=== PATIENT | female | born 1940 | race Two or more races ===

== ENCOUNTER 2022-10-23 09:15 | Inpatient (IN) | payer OTHER ==
[~2022-10-23] VITALS: Ht 157.5 cm; Wt 80.7 kg
[2022-10-23] MEDS ORDERED: ROSUVAST PO (10:31)
[2022-10-23] MEDS ORDERED: AMLODIP PO (10:31)
[2022-10-28] MEDS ORDERED: INTESTINEX680 M1 PO (13:24)
[2022-10-28] MEDS ORDERED: NEURONTIN300 MG PO (13:24)
== END 2022-10-28 15:25 | disposition home or self-care (01) | DRG 330 ==
LOC: O/R 10-25 07:45 → SURH 10-25 09:15 → SURG 10-25 15:27 → SURH 10-25 15:30
PROVIDERS: ADMIT Surgery; ATTEND Surgery
PROC: 07BB4ZZ Excision of Mesenteric Lymphatic, Percutaneous Endoscopic Approach (ICD-10-PCS; 2022-10-25)
PROC: 0DTF4ZZ Resection of Right Large Intestine, Percutaneous Endoscopic Approach (ICD-10-PCS; principal; 2022-10-25 15:30)
DX: C18.0 Malignant neoplasm of cecum (principal); K62.5 Hemorrhage of anus and rectum; R59.0 Localized enlarged lymph nodes; I11.9 Hypertensive heart disease without heart failure; Z20.822 Contact with and (suspected) exposure to COVID-19